=== PATIENT | male | born 1945 | race Caucasian/White ===

== ENCOUNTER 2021-09-24 04:22 | Day surgery (SDC) | payer OTHER, BC ==
[2021-09-23 10:55] VITALS: BMI 20.3
[2021-09-24] MEDS ORDERED: LIDOCAINE 1% P/F 10 MG/ML VIAL INF ONE (12:16)
[2021-09-24] MEDS ORDERED: BUPIVACAINE HCL/PF 0.75% 10 ML VIAL NR ONE (12:16)
[2021-09-24] MEDS ORDERED: IOHEXOL 180 MG/1 ML ML IJ ONE (12:17)
[2021-09-24 13:31] VITALS: BP 130/70; PULSE 58; TEMP 97.8
== END 2021-09-24 13:40 | disposition home or self-care (01) ==
LOC: JASU-SURG 04:22
PROVIDERS: ATTEND Pain Medicine Pain Medicine
PROC: BR16YZZ Fluoroscopy of Lumbar Facet Joint(s) using Other Contrast (ICD-10-PCS; 2021-09-24)
PROC: 3E0T3BZ Introduction of Anesthetic Agent into Peripheral Nerves and Plexi, Percutaneous Approach (ICD-10-PCS; principal; 2021-09-24 10:30)
DX: M47.816 Spondylosis without myelopathy or radiculopathy, lumbar region (principal)
CPT/HCPCS: 76000-TC-FY